=== PATIENT | female | born 1940 | race African-American/Black ===

== ENCOUNTER 2019-10-27 19:01 | Emergency (ER) | payer MEDICARE ==
[2019-10-27] MEDS ORDERED: NALOXONE 2 MG/2 ML INJ ONE (19:41)
[2019-10-27] MEDS ORDERED: DEXTROSE 50% IN WATER (25GM) 50 ML SYRINGE IV ONE (19:44)
--- NOTE | 2019-10-27 19:50 | XRay Report ---
CHEST 1 VIEW 10/27/2019 6:39 PM INDICATION / CLINICAL INFORMATION: Chest Pain. COMPARISON: None available. FINDINGS: SUPPORT DEVICES: None. HEART / MEDIASTINUM: Mild cardiomegaly. LUNGS / PLEURA: There are mild diffuse interstitial opacities. No significant effusion. No pneumothor ax. ADDITIONAL FINDINGS: No significant additional findings. IMPRESSION: 1. Cardiomegaly with age-indeterminate diffuse interstitial opacities. Signer Name: Hecotr De León MD Signed: 10/27/2019 7:45 PM Workstation Name: [id number]
--- NOTE | 2019-10-27 19:57 | Emergency Department Report ---
ED Altered Mental Status HPI - General Chief Complaint: Syncope Stated Complaint: SYNCOPAL EPISODE Time Seen by Provider: 10/27/19 19:50 Source: patient, family Mode of arrival: Wheelchair Limitations: Language Barrier - History of Present Illness Initial Comments: Patient is 79 years old patient female. Patient brought to the emergency room by her daughter stating that her mom went unresponsive in the car. This is happened probably 30 minutes prior to coming to the ER. Patient immediately rushed to the emergency room and I examined the patient is obtunded however she had a stable vital signs and oxygen saturation of 95% on room air and a strong pulse. IV access immediately obtained. Accu-Chek showed a blood sugar of 32. Patient immediately given dextrose 50 IV and patient immediately started working up and started sitting up in the bed and stating that she is okay and started smiling to the staff. Patient denied any headache, focal weakness, numbness or tingling sensation. She also denied any bowel or bladder incontinence. She al so denied any recent head injury. Patient stated that she did not eat. MD Complaint: altered mental status, decreased responsiveness - Related Data Home Medications Medication Instructions Recorded Confirmed Last Taken Aspirin EC [Halfprin EC] 81 mg PO QDAY 08/10/14 08/10/14 08/10/14 Clopidogrel [Plavix] 75 mg PO QDAY 08/10/14 08/10/14 08/10/14 ISOSORBIDE MONOnitrate [Imdur ER] 30 mg PO DAILY 08/10/14 08/10/14 08/10/14 Lovastatin [Altoprev] 40 mg PO QPM 08/10/14 08/10/14 08/09/14 Metoprolol [Lopressor TAB] 25 mg PO BID 08/10/14 08/10/14 08/10/14 lisinopriL [Zestril TAB] 10 mg PO QDAY 08/10/14 08/10/14 08/10/14 raNITIdine HCL [Zantac 300 MG TAB] 300 mg PO QPM 08/10/14 08/10/14 08/09/14 Previous Rx's Medication Instructions Recorded Last Taken Type Azithromycin [Zithromax Z-MACHO] 250 mg PO DAILY #4 tablet 08/11/14 Unknown Rx Acetaminophen [Tylenol] 325 mg PO Q8H PRN #20 capsule 01/04/18 Unknown Rx Cyclobenzaprine HCl [Flexeril 5 MG 5 mg PO QHS PRN #5 tab 01/04/18 Unknown Rx TAB] Allergies Allergy/AdvReac Type Severity Reaction Status Date / Time No Known Allergies Allergy Verified 01/04/18 15:15 ED Review of Systems ROS: Stated complaint: SYNCOPAL EPISODE Other details as noted in HPI Comment: All other systems reviewed and negative Constitutional: denies: chills, fever Respiratory: denies: cough, shortness of breath, SOB with exertion, SOB at rest, wheezing Cardiovascular: denies: chest pain, palpitations Gastrointestinal: denies: abdominal pain, nausea, vomiting, diarrhea Musculoskeletal: denies: back pain Neurological: denies: headache, weakness, numbness, paresthesias, confusion ED Past Medical Hx - Past Medical History Hx Hypertension: Yes Hx Heart Attack/AMI: Yes - Social History Smoking Status: Current Some Day Smoker - Medications Home Medications: Home Medications Medication Instructions Recorded Confirmed Last Taken Type Aspirin EC [Halfprin EC] 81 mg PO QDAY 08/10/14 08/10/14 08/10/14 History Clopidogrel [Plavix] 75 mg PO QDAY 08/10/14 08/10/14 08/10/14 History ISOSORBIDE MONOnitrate [Imdur ER] 30 mg PO DAILY 08/10/14 08/10/14 08/10/14 History Lovastatin [Altoprev] 40 mg PO QPM 08/10/14 08/10/14 08/09/14 History Metoprolol [Lopressor TAB] 25 mg PO BID 08/10/14 08/10/14 08/10/14 History lisinopriL [Zestril TAB] 10 mg PO QDAY 08/10/14 08/10/14 08/10/14 History raNITIdine HCL [Zantac 300 MG TAB] 300 mg PO QPM 08/10/14 08/10/14 08/09/14 History Azithromycin [Zithromax Z-MACHO] 250 mg PO DAILY #4 tablet 08/11/14 Unknown Rx Acetaminophen [Tylenol] 325 mg PO Q8H PRN #20 capsule 01/04/18 Unknown Rx Cyclobenzaprine HCl [Flexeril 5 MG 5 mg PO QHS PRN #5 tab 01/04/18 Unknown Rx TAB] ED Physical Exam - General Limitations: Language Barrier General appearance: alert, in no apparent distress - Head Head exam: Present: atraumatic, normocephalic, normal inspection - Eye Eye exam: Present: normal appearance - ENT ENT exam: Present: normal exam, normal orophraynx, mucous membranes moist - Neck Neck exam: Present: normal inspection, full ROM. Absent: tenderness, meningismus, lymphadenopathy, thyromegaly - Respiratory Respiratory exam: Present: normal lung sounds bilaterally - Cardiovascular Cardiovascular Exam: Present: regular rate, normal rhythm, normal heart sounds - GI/Abdominal GI/Abdominal exam: Present: soft, normal bowel sounds. Absent: distended, tenderness, guarding, rebound, rigid, organomegaly, mass, bruit, pulsatile mass, hernia - Extremities Exam Extremities exam: Present: normal inspection, full ROM, normal capillary refill. Absent: tenderness, pedal edema, calf tenderness - Back Exam Back exam: Present: normal inspection, full ROM. Absent: CVA tenderness (R), CVA tenderness (L), muscle spasm, paraspinal tenderness, vertebral tenderness - Neurological Exam Neurological exam: Present: alert, oriented X3, CN II-XII intact, normal gait, reflexes normal. Absent: motor sensory deficit - Psychiatric Psychiatric exam: Present: normal mood - Skin Skin exam: Present: warm, intact, normal color ED Course Vital Signs 10/27/19 10/27/19 10/27/19 19:56 19:59 21:26 Temperature 98.1 F 98.1 F Pulse Rate 64 69 57 L Respiratory 19 14 15 Rate Blood Pressure 137/64 Blood Pressure 136/74 155/78 [Right] O2 Sat by Pulse 100 100 100 Oximetry - Lab Data Result diagrams: 10/27/19 19:39 10/27/19 19:39 Lab Results 10/27/19 10/27/19 10/27/19 Range/Units 19:39 19:39 19:57 WBC 8.8 (4.5-11.0) K/mm3 RBC 4.75 (3.65-5.03) M/mm3 Hgb 12.2 (10.1-14.3) gm/dl Hct 37.1 (30.3-42.9) % MCV 78 L (79-97) fl MCH 26 L (28-32) pg MCHC 33 (30-34) % RDW 15.5 H (13.2-15.2) % Plt Count 168 (140-440) K/mm3 Lymph % (Auto) 18.7 (13.4-35.0) % [place] % (Auto) 4.7 (0.0-7.3) % Eos % (Auto) 0.5 (0.0-4.3) % Baso % (Auto) 0.3 (0.0-1.8) % Lymph # 1.6 (1.2-5.4) K/mm3 [place] # 0.4 (0.0-0.8) K/mm3 Eos # 0.0 (0.0-0.4) K/mm3 Baso # 0.0 (0.0-0.1) K/mm3 Seg Neutrophils % 75.8 H (40.0-70.0) % Seg Neutrophils # 6.7 (1.8-7.7) K/mm3 Sodium 142 (137-145) mmol/L Potassium 3.7 (3.6-5.0) mmol/L Chloride 107.3 H (98-107) mmol/L Carbon Dioxide 22 (22-30) mmol/L Anion Gap 16 mmol/L BUN 20 H (7-17) mg/dL Creatinine 0.6 (0.6-1.2) mg/dL Estimated GFR > 60 ml/min BUN/Creatinine Ratio 33 % Glucose 43 L (65-100) mg/dL POC Glucose < 40 L (70-105) Calcium 8.8 (8.4-10.2) mg/dL Troponin T < 0.010 (0.00-0.029) ng/mL 10/27/19 10/27/19 10/27/19 Range/Units 20:00 21:24 23:11 WBC (4.5-11.0) K/mm3 RBC (3.65-5.03) M/mm3 Hgb (10.1-14.3) gm/dl Hct (30.3-42.9) % MCV (79-97) fl MCH (28-32) pg MCHC (30-34) % RDW (13.2-15.2) % Plt Count (140-440) K/mm3 Lymph % (Auto) (13.4-35.0) % [place] % (Auto) (0.0-7.3) % Eos % (Auto) (0.0-4.3) % Baso % (Auto) (0.0-1.8) % Lymph # (1.2-5.4) K/mm3 [place] # (0.0-0.8) K/mm3 Eos # (0.0-0.4) K/mm3 Baso # (0.0-0.1) K/mm3 Seg Neutrophils % (40.0-70.0) % Seg Neutrophils # (1.8-7.7) K/mm3 Sodium (137-145) mmol/L Potassium (3.6-5.0) mmol/L Chloride (98-107) mmol/L Carbon Dioxide (22-30) mmol/L Anion Gap mmol/L BUN (7-17) mg/dL Creatinine (0.6-1.2) mg/dL Estimated GFR ml/min BUN/Creatinine Ratio % Glucose (65-100) mg/dL POC Glucose 421 H 173 H (70-105) Calcium (8.4-10.2) mg/dL Troponin T < 0.010 (0.00-0.029) ng/mL 10/27/19 10/28/19 Range/Units 23:28 01:08 WBC (4.5-11.0) K/mm3 RBC (3.65-5.03) M/mm3 Hgb (10.1-14.3) gm/dl Hct (30.3-42.9) % MCV (79-97) fl MCH (28-32) pg MCHC (30-34) % RDW (13.2-15.2) % Plt Count (140-440) K/mm3 Lymph % (Auto) (13.4-35.0) % [place] % (Auto) (0.0-7.3) % Eos % (Auto) (0.0-4.3) % Baso % (Auto) (0.0-1.8) % Lymph # (1.2-5.4) K/mm3 [place] # (0.0-0.8) K/mm3 Eos # (0.0-0.4) K/mm3 Baso # (0.0-0.1) K/mm3 Seg Neutrophils % (40.0-70.0) % Seg Neutrophils # (1.8-7.7) K/mm3 Sodium (137-145) mmol/L Potassium (3.6-5.0) mmol/L Chloride (98-107) mmol/L Carbon Dioxide (22-30) mmol/L Anion Gap mmol/L BUN (7-17) mg/dL Creatinine (0.6-1.2) mg/dL Estimated GFR ml/min BUN/Creatinine Ratio % Glucose (65-100) mg/dL POC Glucose 138 H 123 H (70-105) Calcium (8.4-10.2) mg/dL Troponin T (0.00-0.029) ng/mL - EKG Data -: EKG Interpreted by Me 10/28/19 01:35 Atrial fibrillation, chronic per patient report. - Medical Decision Making Patient is 79 years old patient female. Patient brought to the emergency room by her daughter stating that her mom went unresponsive in the car. This is happened probably 30 minutes prior to coming to the ER. Patient immediately rushed to the emergency room and I examined the patient is obtunded however she had a stable vital signs and oxygen saturation of 95% on room air and a strong pulse. IV access immediately obtained. Accu-Chek showed a blood sugar of 32. Patient immediately given dextrose 50 IV and patient immediately started working up and started sitting up in the bed and stating that she is okay and started smiling to the staff. Patient denied any headache, focal weakness, numbness or tingling sensation. She also denied any bowel or bladder incontinence. She also denied any recent head injury. Patient stated that she did not eat. Patient remained asymptomatic after D50. Patient given a meal tray. Multiple blood sugar checks showed a consistently blood glucose above 100. Patient is currently alert, oriented x3 no acute distress. Patient observed in the ER for more than 6 hours with no deterioration. Patient is not currently on any oral hypoglycemic medication or insulin. Patient advised to follow-up with her primary care physician in the next 2 to 3 days and to return to the ER if she develop any new symptoms. Critical Care Time: Yes Critical care time in (mins) excluding proc time.: 30 Critical care attestation.: If time is entered above; I have spent that time in minutes in the direct care of this critically ill patient, excluding procedure time. ED Disposition Clinical Impression: Altered mental status, Acute metabolic encephalopathy due to hypoglycemia Disposition: DC-01 TO HOME OR SELFCARE Is pt being admited?: No Condition: Stable Instructions: Non-diabetic Hypoglycemia (ED) Referrals: PRIMARY CARE, [Primary Care Provider] - 3-5 Days
[2019-10-27 19:58] LABS: Basophils % (Auto) 0.3 % (0.0-1.8); Eosinophils % (Auto) 0.5 % (0.0-4.3); Hematocrit 37.1 % (30.3-42.9); Hemoglobin 12.2 gm/dl (10.1-14.3); Lymphocytes # (Auto) 1.6 K/mm3 (1.2-5.4); Lymphocytes % (Auto) 18.7 % (13.4-35.0); Mean Corpuscular HGB Conc 33 % (30-34); Mean Corpuscular Volume 78 fl (79-97); Monocytes # (Auto) 0.4 K/mm3 (0.0-0.8); Monocytes % (Auto) 4.7 % (0.0-7.3); Platelet Count 168 K/mm3 (140-440); Red Blood Count 4.75 M/mm3 (3.65-5.03); Red Cell Distribution Width 15.5 % (13.2-15.2)
[2019-10-27 20:51] LABS: Blood Urea Nitrogen 20 mg/dL (7-17); Calcium 8.8 mg/dL (8.4-10.2); Hemolysis Index 5
[2019-10-27 20:54] LABS: BUN/Creatinine Ratio 33
[2019-10-27] MEDS ORDERED: DEXTROSE 5% IN WATER 1,000 ML IV SCH (21:00)
[2019-10-27 21:28] VITALS: BP 155/78
== END 2019-10-27 20:00 | disposition home or self-care (01) ==
LOC: ED 19:01
DX: R41.82 Altered mental status, unspecified (principal); E16.2 Hypoglycemia, unspecified; I10 Essential (primary) hypertension; I25.2 Old myocardial infarction; F17.200 Nicotine dependence, unspecified, uncomplicated; Z79.82 Long term (current) use of aspirin; Z79.899 Other long term (current) drug therapy
CPT/HCPCS: 36415; 71045; 80048; 82962; 84484; 85025; 93005; 99285; J7070; J2310